=== PATIENT | female | born 1930 | race Caucasian/White ===

== ENCOUNTER 2016-08-25 00:26 | Day surgery (SDC) | payer MEDICARE ==
[~2016-08-25 00:26] MED LIST: ALBU8.5H2 INHALATION; APIX5TAB PO; BUDE10.2 INHALATION; DILT240T10 PO; LISI1TAB11 PO; LOVA20TA PO; MIRT15TA6 PO; MULT-1073 PO
[2016-08-25] MEDS ORDERED: Lactated Ringer's 1,000 ML IV SCH (05:00)
--- NOTE | 2016-08-25 07:14 | PCM.HPANE ---
Patient Data Surgeon Admitting Provider: Attending Provider:Skye [place] Anesthesia Primary Care Physician:José Miguel Hernandez MD Other Provider: Reason for Visit Persistent Atrial Fibrillation Ht/WT & BMI Body Mass Index Diabetes History Hx Diabetes?: No Medications Hypertension Medication: Yes Home Meds Incl Beta Himanshu: No Reported Medications Flaxseed Oil ([place]-3 Flaxseed Oil)1,000 Mg Capsule1,000 Mg PO DAILY 08/25/16 Glucosamine 500 Mg [id number] Mg PO DAILY 08/25/16 Budesonide/Formoterol 80-4.5 mcg Inh (Symbicort 80-4.5 mcg Inh)120 Puff Inhaler2 Puff INHALATION BID #1 INHALER Ref 0 08/24/16 Albuterol HFA (Proair HFA)8.5 Gm Hfa.aer.ad2 Puffs INHALATION Q4H PRN For Wheezing #1 INHALER 08/24/16 Mirtazapine 15 Mg [id number] Mg PO HS Ref 0 08/24/16 Lovastatin 20 Mg [id number] Mg PO HS #30 TABLET Ref 0 08/24/16 Lisinopril / HCTZ 20-25 mg 1 Each Tablet1 Each PO DAILY Ref 0 08/24/16 Apixaban (Eliquis)5 Mg Tablet5 Mg PO BID 08/24/16 Diltiazem ER 240 Mg [id number] Mg PO DAILY Ref 0 08/24/16 Multivits-Min/FA/Lycopene/Lut (Centrum Silver Tablet)1 Each Tablet1 Each PO DAILY 08/24/16 History History of ENT Problems?: No Cardiovascular History: Positive for:: Atrial Fibrillation Respiratory History: Positive for:: Asthma COPD Stop/Bang Risk Assessment Category Category 1A: Patient has history of documented sleep apnea, and HAS NOT received any narcotic, sedative or anesthesia administration during this stay. Category 1B: Patient has history of documented sleep apnea, and HAS received any narcotic , sedative or anesthesia administration during this stay Category 2: Patient has SUSPECTED Obstructive Sleep Apnea, and HAS received any narcotic , sedative or anesthesia administration during this stay. Category 3: Patient has SUSPECTED Obstructive Sleep Apnea and HAS NOT received narcotic, sedative or anesthesia administration during this stay. Category 4: Outpatient in Procedural Areas with known sleep apnea or who screen positive for High Risk via the STOP/BANG questionnaire. Exam Exam General Appearance: Alert, Oriented X3, Cooperative, No Acute Distress HEENT/AIRWAY: MP 2 Lungs: Normal Air Movement Heart: Other (irregular rhythm) Plan Impression Patient chart reviewed, patient interviewed and anesthestic plan with risks, benefits, and alternatives discussed, and informed consent obtained. ASA Physical Status: ASA3 Severe Disease Anesthetic Plan: GA Bene/Risks/Altern/Consents: Yes HP Complete Prior to Induction: Yes Dawson Cruz MD Aug 25, 2016 07:14
[2016-08-25 08:25] LABS: BASOPHILS % (AUTO) 0.8 % (0-3); EOSINOPHILS % (AUTO) 1.7 % (0-5); Mean Corpuscular Volume 86.5 fL (81-100); NEUTROPHILS % (AUTO) 67.3 % (40-74); Platelet Count 290 bil/L (150-400)
[2016-08-25 08:30] VITALS: BP 109/42; PULSE 90; RESP 26
[2016-08-25] MEDS ORDERED: FLAX100038 PO (08:38)
[2016-08-25] MEDS ORDERED: GLUC500T12 PO (08:38)
[2016-08-25 08:50] LABS: INR 1.11 ratio
[2016-08-25] MEDS ORDERED: Amiodarone 150 mg/100 mL D5W Premix IV ONE (09:37)
--- NOTE | 2016-08-25 09:58 | PCM.ANEP1 ---
Post Anesthesia Phase 1 PACU Phase 1 Assessment Vital Signs 118/60, 71, 23, 97%, 36.5 Vital Signs Date Time Temp Pulse Resp B/P Pulse Ox O2 Delivery O2 Flow Rate FiO2 08/25/16 08:30 36.9 90 26 109/42 Room Air Anesthetic Administered: GA Level of Alertness: Awake, talking CASH's with Equal Strength: Yes Pain: No Nausea or Vomiting: No Oxygen Delivery: Nasal Cannula Lungs: Normal Air Movement Dermatome Level: Full Sensation Dawson Cruz MD Aug 25, 2016 09:58
--- NOTE | 2016-08-25 09:58 | PCM.ANEP2 ---
Post Anesthesia Evaluation ASA/CMS Post Anesthesia VS in Patient's Normal Range?: Yes Resp Stable; Airway Patent?: Yes CV Function & Hydration Stable: Yes Mental Status Recovered?: Yes Pain control Satisfactory?: Yes N/V Control Satisfactory?: Yes Dawson Cruz MD Aug 25, 2016 09:58
--- NOTE | 2016-08-25 12:49 | NUR ---
Discharge Pt discharged to home with family after stable recovery post cardioversion. pt and family stated verbal understanding of discharge instructions regarding use of home medications, signs of worsening condition and follow up appointments, pt and family left with personal belongings, discharge paperwork, IV dc'd intact at approximately 1030
--- NOTE | 2016-08-25 12:50 | OUT PROC ---
[address] [address] PROCEDURE NOTE PATIENT: ABNER BOURNE : 1930 MR#: [id number] ADMIT: 08/25/2016 JOB ID: [id number] DATE OF PROCEDURE: 08/25/2016 INDICATION: Persistent atrial fibrillation with intermittent fast ventricular rate. CONSENT: Informed consent was obtained from the patient after explaining benefits and the risks, which include, but not limited to, risk of asystole, , stroke, anesthesia related complications, aspiration, etc. The patient verbalizes understanding. All the questions were answered. FINANCE MGR: Zoë Liu MD DESCRIPTION OF PROCEDURE: The patient was brought to the [facility] in stable condition. The patient was in atrial fibrillation with intermittent fast ventricular rate. Anesthesiologist gave sedation. For details, look into the anesthesiology report. The patient was monitored constantly with blood pressure monitoring, EKG monitoring, pulse oximetry monitoring. The patient has been Eliquis 5 mg twice a day since October 2015. Her hemoglobin was 14.8, platelets 290, sodium 132, potassium 4.0, BUN 22, creatinine 1.0, calcium 9.8. After adequate sedation, patient received 200 joule, biphasic synchronized shock using anterior-posterior standard pads. First shock was unsuccessful. Then, patient received a second 200 joule synchronized biphasic shock, which was unsuccessful as well. Subsequently, we give her 150 mg of IV amiodarone over 10 minutes. Third attempt was performed after IV amiodarone infusion. The patient received another 200 joules synchronized biphasic shock. Third attempt was successful. The patient got converted to sinus rhythm. She resumed consciousness. There was no immediate complication. CONCLUSION: Successful cardioversion after 150 mg of IV amiodarone infusion. The patient to stay on Eliquis 5 mg twice a day for anticoagulation. She will be seen in Cardiology Clinic in a couple of weeks with EKG. To avoid any further blood pressure drop, will cut down lisinopril/hydrochlorothiazide combination (20 to 25 mg) one tablet daily to half tablet daily. The patient to monitor blood pressure at home. No driving today. Discussed the plan with the niece as well. She will take her home.
== END 2016-08-25 23:59 | disposition home or self-care (01) ==
LOC: SOUO 00:26
PROVIDERS: ATTEND Internal Medicine Cardiovascular Disease
DX: I48.1 Persistent atrial fibrillation (principal); Z79.01 Long term (current) use of anticoagulants; I10 Essential (primary) hypertension; E78.5 Hyperlipidemia, unspecified; J45.909 Unspecified asthma, uncomplicated; J47.9 Bronchiectasis, uncomplicated; E11.42 Type 2 diabetes mellitus with diabetic polyneuropathy
CPT/HCPCS: 80048; 85025; 85610; 92960; 93005; 99152; J0282